=== PATIENT | male | born 1980 | race Caucasian/White ===

== ENCOUNTER 2016-05-11 09:35 | Emergency (ER) | payer BC, OTHER ==
[2016-05-11] MEDS ORDERED: Ibuprofen TAB* 400 MG PO ONE (10:43)
--- NOTE | 2016-05-11 11:15 | RAD ---
HISTORY: Fall, knee pain and swelling COMPARISONS: None VIEWS: 4, Frontal, lateral, axial, and oblique views right knee FINDINGS: BONE DENSITY: Normal. BONES: There is no displaced fracture. JOINTS: There is no arthropathy. There is a small suprapatellar joint effusion ALIGNMENT: There is no dislocation. SOFT TISSUES: Unremarkable. OTHER FINDINGS: None. IMPRESSION: NO ACUTE OSSEOUS INJURY. SMALL EFFUSION. IF SYMPTOMS PERSIST, RECOMMEND REPEAT IMAGING.
--- NOTE | 2016-05-11 16:18 | UC ---
Bruno Mayo Salem, scribed for Radha Roman MD on 05/11/16 at 1051 . Knee Pain HPI - HPI Summary HPI Summary: Patient is a 36 y/o male who presents to the with a right knee injury at work since 0900 this morning. Pt reports working on a 4ft tall scaffold prior to falling and bending knee the wrong way. He states knee swelled up immediately after injury and reports 7/10 knee pain. He denies any ankle, back, or neck pain. He also denies hitting his head or LOC. Pt also states he had torn his right ACL years ago and it was never repaired. - History of Current Complaint Chief Complaint: UCLowerExtremity Stated Complaint: KNEE INJURY Time Seen by Provider: 05/11/16 10:37 Hx Obtained From: Patient Onset/Duration: Sudden Onset, Lasting Hours, Still Present Severity Initially: Moderate Severity Currently: Moderate Pain Intensity: 7 Pain Scale Used: 0-10 Numeric Character: Dull Aggravating Factor(s): Movement Alleviating Factor(s): Rest Associated Signs And Symptoms: Positive: Swelling Able to Bear Weight: Yes Related History: Similar Episode/Dx as - ACL tear - Risk Factors Septic Arthritis Risk Factor: Negative Gout Risk Factor: Male - Allergies/Home Medications Allergies/Adverse Reactions: Allergies Allergy/AdvReac Type Severity Reaction Status Date / Time No Known Allergies Allergy Verified 05/11/16 09:57 Home Medications: Home Medications NK [No Home Medications Reported] 05/11/16 [History Confirmed 05/11/16] PMH/Surg Hx/FS Hx/Imm Hx Previously Healthy: Yes - Surgical History Surgical History: None - Family History Known Family History: Positive: Other - [place] - Social History Occupation: Employed Full-time Alcohol Use: None Substance Use Type: None Smoking Status (MU): Never Smoked Tobacco - Immunization History Most Recent Influenza Vaccination: None Most Recent Tetanus Shot: UTD Most Recent Pneumonia Vaccination: N/A Review of Systems Constitutional: Negative Musculoskeletal: Arthralgia, Other: - Knee swelling. No ankle, back, or neck pain Neurological: Other - No LOC. All Other Systems Reviewed And Are Negative: Yes Physical Exam Triage Information Reviewed: Yes Appearance: Well-Appearing, Pain Distress, Obese Vital Signs: Initial Vital Signs Temp 97.6 F 05/11/16 09:58 Pulse 60 05/11/16 09:58 Resp 18 05/11/16 09:58 BP 132/82 05/11/16 09:58 Pulse Ox 100 05/11/16 09:58 Elevated blood pressure noted. Vital Signs Reviewed: Yes Eyes: Positive: Conjunctiva Clear ENT Exam: Normal Neck: Positive: Supple, Nontender, No Lymphadenopathy Respiratory: Positive: Lungs clear, Normal breath sounds, No respiratory distress Cardiovascular: Positive: RRR, No Murmur, Pulses Normal, Brisk Capillary Refill Abdomen Description: Positive: Nontender, Soft. Negative: Splenomegaly Musculoskeletal: Positive: Other: - Abrasion to left forearm, dorsal surface. No wrist or elbow tenderness. Right knee exam: Can bend to 110 degrees and has full extension. Ligaments stable with stress. Diffuse swelling. No spinal tenderness or CVA tenderness. No posterior spine tenderness in neck. Neurological: Positive: Alert, Muscle Tone Normal Psychological Exam: Normal Skin Exam: Normal Diagnostics - Radiology KNEE XR Radiology Interpretation Completed By: Radiologist - IMPRESSION: NO ACUTE OSSEOUS INJURY. SMALL EFFUSION. IF SYMPTOMS PERSIST, RECOMMEND REPEAT IMAGING. Re-Evaluation - Re-Evaluation First Eval Re-Evaluation Time: 11:33 Comment: Discussed X-Ray report with pt. Pt is agreeable with plan. Knee Pain Course/Dx - Course Course Of Treatment: Discussed elevated blood pressure with pt. - Differential Dx/Diagnosis Differential Diagnosis/HQI/PQRI: Contusion, Fracture (Closed), Internal Derangement Of Knee, Sprain, Strain Provider Diagnoses: 1. Right knee effusion and sprain. 2. High blood pressure without diagnosis of hypertension. Discharge - Discharge Plan Condition: Stable Disposition: HOME Patient Education Materials: Knee Sprain (ED), Crutch Instructions (ED) Forms: *Work Release Referrals: Armando Amaya MD [Primary Care Provider] - Danial Llamas MD [Medical Doctor] - 5 Days Additional Instructions: Follow up in 2 days with PCP regarding your elevated blood pressure. RETURN TO URGENT CARE FOR ANY NEW OR WORSENING SYMPTOMS The documentation as recorded by the Bruno diane Salem accurately reflects the service I personally performed and the decisions made by , Radha Roman MD.
== END 2016-05-11 11:52 | disposition home or self-care (01) ==
LOC: UCEAST 09:35
DX: S83.91XA Sprain of unspecified site of right knee, initial encounter (principal); W12.XXXA Fall on and from scaffolding, initial encounter; Y93.9 Activity, unspecified; Y99.9 Unspecified external cause status
CPT/HCPCS: 99203; A9270-GY; G0463

== ENCOUNTER 2017-10-29 08:38 | Emergency (ER) | payer BC, OTHER ==
--- NOTE | 2017-10-29 09:51 | ED ---
HPI Cardiac - HPI Summary HPI Summary: Pt presents w/ SOB 1.5 hours ago - felt like he couldn't get a deep breath and had associated sx of tingling of the Rt distal finger tips. This episode lasted 30 minutes [address] his [address] driving from work to [employer]. Breathing and arm sx have resolved. Taking deep breathes and drinking water improved sx; walking made it worse. Denies CP, pressure, wheezing. No previous h/o these sx. Denies h/o asthma, allergies and has never needed or used breathing tx. - History of Current Complaint Chief Complaint: EDShortnessOfBreath Stated Complaint: SOB Time Seen by Provider: 10/29/17 08:53 Hx Obtained From: Patient Pain Intensity: 0 - Allergy/Home Medications Allergies/Adverse Reactions: Allergies Allergy/AdvReac Type Severity Reaction Status Date / Time No Known Allergies Allergy Verified 10/29/17 08:48 PMH/Surg Hx/FS Hx/Imm Hx Previously Healthy: Yes Endocrine/Hematology History: Denies: Hx Anticoagulant Therapy, Hx Diabetes, Hx Thyroid Disease Cardiovascular History: Denies: Hx Aneurysm, Hx Angina, Hx Hypertension, Hx Pacemaker/ICD Respiratory History: Denies: Hx Asthma, Hx Seasonal Allergies GI History: Reports: Other GI Disorders - hernia repair Denies: Hx Gastroesophageal Reflux Disease History: Denies: Hx Renal Disease Musculoskeletal History: Reports: Other Musculoskeletal History - Rt knee repair Sensory History: Denies: Hx Hearing Aid Psychiatric History: Denies: Hx Panic Disorder - Surgical History Surgery Procedure, Year, and Place: HERNIA 1982 Infectious Disease History: No Infectious Disease History: Denies: Traveled Outside the [place] in Last 30 Days - Family History Known Family History: Positive: Other - [place] - Social History 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 Negative: Cough Gastrointestinal: Negative Positive: no symptoms reported Musculoskeletal: Negative Negative: Arthralgia Skin: Negative Negative: Rash Neurological: Negative Negative: Headache, Weakness Psychological: Normal - no new stress, work is fine, no stress at home All Other Systems Reviewed And Are Negative: Yes Physical Exam Triage Information Reviewed: Yes Vital Signs On Initial Exam: Initial Vitals Temp Pulse Resp BP Pulse Ox 97.8 F 88 18 142/74 100 10/29/17 08:46 10/29/17 08:46 10/29/17 08:46 10/29/17 08:46 10/29/17 08:46 Vital Signs Reviewed: Yes Appearance: Positive: Well-Appearing, No Pain Distress, Well-Nourished Skin: Positive: Warm, Skin Color Reflects Adequate Perfusion, Dry Head/Face: Positive: Normal Head/Face Inspection Eyes: Positive: Normal, EOMI, Conjunctiva Clear. Negative: Conjunctiva Inflammed, Discharge ENT: Positive: Normal ENT inspection, Hearing grossly normal, Uvula midline, Other - Mallampati Score III-IV Dental: Negative: Abscess @ Neck: Positive: Supple, Nontender, No Lymphadenopathy Respiratory/Lung Sounds: Positive: Clear to Auscultation, Breath Sounds Present. Negative: Rales, Rhonchi, Stridor, Tracheal Deviation, Wheezes, Unable to speak in full sentences, Fatigue Cardiovascular: Positive: Normal, RRR, S1, S2. Negative: Murmur, Rub, Leg Edema Left, Leg Edema Right Abdomen Description: Positive: Nontender, No Organomegaly, Soft Bowel Sounds: Positive: Present Musculoskeletal: Positive: Normal, Strength/ROM Intact Neurological: Positive: Normal, Sensory/Motor Intact, Alert, Oriented to Person Place, Time, CN Intact II-III Psychiatric: Positive: Normal Diagnostics - Vital Signs Vital Signs Temp Pulse Resp BP Pulse Ox 10/29/17 08:46 97.8 F 88 18 142/74 100 - Laboratory Result Diagrams: 10/29/17 10:26 10/29/17 10:26 Lab Statement: Any lab studies that have been ordered have been reviewed, and results considered in the medical decision making process. Disposition - Diagnoses Provider Diagnoses: Dyspnea Discharge - Sign-Out/Discharge Documenting (check all that apply): Patient Departure - Discharge Plan Condition: Stable Disposition: HOME Patient Education Materials: Dyspnea (ED) Forms: *Work Release Referrals: [facility] [place] [facility]ERR[facility] [Outside] Additional Instructions: The definitive cause of your perceived shortness of breath was not identified today however dangerous conditions such as an aortic aneurysm, heart attack, collapsed lung, infection, dehydration, etc. have been ruled out. It is important that you stay hydrated, stretch and reduce her stress level and an effort to prevent future events of shortness of breath. He may also monitor you are self or symptoms of heartburn which can cause lung irritation leading to shortness of breath. It is also important to monitor your hydration level as dry nose mouth and throat can lead to a sensation of shortness of breath. If your symptoms return and/or worsen, return to the emergency department for additional testing. If symptoms do not return or return to a mild degree, he may follow up with her PCP. It is recommended that you establish with a PCP by calling the referral number provided today. - Billing Disposition and Condition Condition: STABLE Disposition: Home
[2017-10-29 10:40] LABS: ABS Basophils 0 10^3/ul (0-0.2); ABS Eosinophils 0.1 10^3/ul (0-0.6); ABS Lymphocytes 1.2 10^3/ul (1.0-4.8); ABS Monocytes 0.4 10^3/ul (0-0.8); ABS Neutrophils 5.6 10^3/ul (1.5-7.7); ABS Nucleated RBC 0 10^3/ul; Hematocrit 47 % (42-52); Hemoglobin 16.4 g/dl (14.0-18.0); Lymphocyte % 16.6 % (25-47); Mean Corpuscular HGB Conc 35 g/dl (31-36); Mean Corpuscular Hemoglobin 30 pg (27-31); Mean Corpuscular Volume 84 fL (80-94); Mean Platelet Volume 9.6 um3 (7.4-10.4); Nucleated Red Blood Cells % 0.1; Platelet Count 205 10^3/ul (150-450); Red Blood Count 5.55 10^6/ul (4.00-5.40); Red Cell Distribution Width 13 % (10.5-15); White Blood Count 7.3 10^3/ul (3.5-10.8)
[2017-10-29 10:59] LABS: EGFR Non-African American 97.7 (>60)
--- NOTE | 2017-10-29 11:46 | RAD ---
INDICATION: Shortness of breath. COMPARISON: There are no relevant prior studies available for comparison. TECHNIQUE: A portable view of the chest was obtained. FINDINGS: Cardiac and mediastinal contours appear to be within normal limits. The lungs are clear. No pleural effusion is seen. IMPRESSION: NO EVIDENCE FOR ACUTE DISEASE.
[2017-10-29 13:04] VITALS: BP 122/76
== END 2017-10-29 13:06 | disposition home or self-care (01) ==
LOC: ED 08:38
DX: R06.02 Shortness of breath (principal); R06.00 Dyspnea, unspecified
CPT/HCPCS: 36415; 71045; 80053; 83605; 84484; 85025; 86140; 93005; 99283

== ENCOUNTER 2019-05-19 12:56 | Emergency (ER) | payer BC ==
[2019-05-19] MEDS ORDERED: NS 0.9% 1000 ML** 1,000 ML IV ONE (13:04)
--- NOTE | 2019-05-19 13:10 | ED ---
Syncope/Near Syncope - HPI Summary HPI Summary: 39-year-old male with a significant past medical history of one episode of syncope due to a positional change presents to the emergency department today with chief complaint of syncope lasting seconds. Patient states this occurred approximately one hour ago while in a seated position eating lunch at work. This was witnessed and there is no seizure-like activity reported from bystanders. Patient was reported to be eating when his eyes rolled back and he leaned back and shoulder however he did not fall out or sustain any injury from the syncope. Patient has no postictal state, incontinence, tongue biting. Patient currently denies other symptoms and states he felt well this morning denying fever, chest pain, dull pain, diaphoresis, shortness of breath, nausea, vomiting diarrhea, rash. Patient is asymptomatic at this time and resting comfortable in the stretcher. Patient denies recent alcohol use or drug use. Patient has no medical history of seizure or seizure-like activity. - History Of Current Complaint Chief Complaint: EDSyncope Time Seen by Provider: 05/19/19 13:04 Hx Obtained From: Patient Onset/Duration: Sudden Onset Timing: Seconds Context: Witnessed Activity At Onset: At Rest Associated Head Trauma: No Aggravating Factor(s): Nothing Alleviating Factor(s): Spontaneous Resolution Associated Signs And Symptoms: Negative - Allergies/Home Medications Allergies/Adverse Reactions: Allergies Allergy/AdvReac Type Severity Reaction Status Date / Time No Known Allergies Allergy Verified 10/29/17 08:48 Home Medications: Home Medications NK [No Home Medications Reported] 05/19/19 [History Confirmed 05/19/19] PMH/Surg Hx/FS Hx/Imm Hx Endocrine/Hematology History: Denies: Hx Anticoagulant Therapy, Hx Diabetes, Hx Thyroid Disease Cardiovascular History: Denies: Hx Aneurysm, Hx Angina, Hx Hypertension, Hx Pacemaker/ICD Respiratory History: Denies: Hx Asthma, Hx Seasonal Allergies GI History: Reports: Other GI Disorders - hernia repair Denies: Hx Gastroesophageal Reflux Disease History: Denies: Hx Renal Disease Musculoskeletal History: Reports: Other Musculoskeletal History - Rt knee repair Sensory History: Denies: Hx Hearing Aid Psychiatric History: Denies: Hx Panic Disorder - Surgical History Surgery Procedure, Year, and Place: HERNIA 1982 Infectious Disease History: No Infectious Disease History: Denies: Traveled Outside the [place] in Last 30 Days - Family History Known Family History: Positive: Other - [place] - Social History Alcohol Use: None Hx Substance Use: No Substance Use Type: Reports: None Hx Tobacco Use: No Smoking Status (MU): Never Smoked Tobacco Review of Systems Constitutional: Negative Eyes: Negative ENT: Negative Cardiovascular: Negative Respiratory: Negative Gastrointestinal: Negative Genitourinary: Negative Musculoskeletal: Negative Skin: Negative Positive: Syncope. Negative: Headache, Weakness, Paresthesia, Numbness Psychological: Normal All Other Systems Reviewed And Are Negative: Yes Physical Exam - Summary Physical Exam Summary: Patient is in no acute distress. Patient doesn't complain the stretcher. No evidence of tongue biting, incontinence, postictal state. Patient is alert and oriented 3. Patient has no labored breathing. Triage Information Reviewed: Yes Vital Signs On Initial Exam: Initial Vitals Temp Pulse Resp BP Pulse Ox 97.4 F 74 15 122/69 95 05/19/19 13:03 05/19/19 13:03 05/19/19 13:03 05/19/19 13:03 05/19/19 13:03 Vital Signs Reviewed: Yes Appearance: Positive: Well-Appearing, No Pain Distress, Well-Nourished Skin: Positive: Warm, Skin Color Reflects Adequate Perfusion Eyes: Positive: EOMI, AUSTYN ENT: Positive: Hearing grossly normal Respiratory/Lung Sounds: Positive: Clear to Auscultation, Breath Sounds Present Cardiovascular: Positive: RRR, S1, S2 Abdomen Description: Positive: Nontender, Soft Bowel Sounds: Positive: Present Musculoskeletal: Positive: Strength/ROM Intact Neurological: Positive: Sensory/Motor Intact, Alert, Oriented to Person Place, Time, Normal Gait, Facial Symmetry, Speech Normal Psychiatric: Positive: Normal, Affect/Mood Appropriate AVPU Assessment: Alert Procedures - Sedation Patient Received Moderate/Deep Sedation with Procedure: No Diagnostics - Vital Signs Vital Signs Temp Pulse Resp BP Pulse Ox 05/19/19 13:03 97.4 F 74 15 122/69 95 - Laboratory Result Diagrams: 05/19/19 13:12 05/19/19 13:12 Lab Statement: Any lab studies that have been ordered have been reviewed, and results considered in the medical decision making process. Course/Dx Course Of Treatment: Patient was evaluated in the emergency department today for syncope. Patient stable no evidence of trauma. Vitals noted and stable. EKG was done promptly which shows no evidence of STEMI. Normal sinus rhythm rate of 77 bpm. There is normal axis, MA, QT interval. No evidence of ischemia. There is no postictal state, incontinence, tongue biting or evidence of seizure like activity. Laboratory studies returned showing no acidosis, anemia, electrolyte disturbance, elevation and lactic acid. Orthostatic vital signs negative. Patient syncope likely due to vasovagal reaction. Patient discharged with outpatient follow-up as there is no obvious pathology requiring intervention at this time. - Diagnoses Differential Diagnosis/HQI/PQRI: Positive: Hypoglycemia, Hypovolemia, Metabolic Reaction, Seizure, Vasovagal Episode Provider Diagnoses: Syncope Discharge ED - Sign-Out/Discharge Documenting (check all that apply): Patient Departure - Discharge Plan Condition: Stable Disposition: HOME Patient Education Materials: Syncope (ED) Referrals: Armando Amaya MD [Medical Doctor] - 3 Days Additional Instructions: the cause of the passing out today was likely due to a vasovagal reaction. This is common and benign. There is no evidence of any seizure-like activity or infection in your blood work. Please follow-up with your primary care provider in the next 3-5 days for further evaluation and management. Until then please return to activity as tolerated and do not operate vehicles. Please return to the emergency department immediately should you develop any new or worsening symptoms. - Billing Disposition and Condition Condition: STABLE Disposition: Home
[2019-05-19 13:26] LABS: ABS Basophils 0.1 10^3/ul (0-0.2); ABS Eosinophils 0.1 10^3/ul (0-0.6); ABS Lymphocytes 2.4 10^3/ul (1.0-4.8); ABS Monocytes 0.3 10^3/ul (0-0.8); ABS Neutrophils 3.2 10^3/ul (1.5-7.7); Eosinophil % 2.1 %; Hematocrit 44 % (42-52); Hemoglobin 15.6 g/dL (14.0-18.0); Lymphocyte % 39.8 %; Mean Corpuscular HGB Conc 36 g/dL (31-36); Mean Corpuscular Hemoglobin 30 pg (27-31); Mean Corpuscular Volume 85 fL (80-94); Mean Platelet Volume 9.6 fL (7.4-10.4); Nucleated Red Blood Cells % 0.2; Platelet Count 197 10^3/uL (150-450); Red Blood Count 5.17 10^6 /uL (4.18-5.48); Red Cell Distribution Width 13 % (10-15)
[2019-05-19 13:41] LABS: Albumin 4.1 g/dL (3.2-5.2); Albumin/Globulin Ratio 1.6 (1-3); BUN/Creatinine Ratio 11.1 (8-20); Calcium 9.5 mg/dL (8.6-10.3); EGFR African American 112.5 (>60); Globulin 2.6 g/dL (2-4); Potassium 3.3 mmol/L (3.5-5.0); Total Bilirubin 0.7 mg/dL (0.2-1.0); Total Protein 6.7 g/dL (6.4-8.9)
[2019-05-19 14:30] VITALS: BP 111/65
== END 2019-05-19 14:29 | disposition home or self-care (01) ==
LOC: ED 12:56
DX: R55 Syncope and collapse (principal)
CPT/HCPCS: 36415; 80053; 83605; 85025; 93005; 99283